=== PATIENT | female | born 1950 | race African-American/Black ===

== ENCOUNTER 2020-06-09 19:56 | Emergency (ER) | payer MEDICARE, MEDICAID, SELFPAY ==
[2020-06-09 20:04] VITALS: BP 180/94; PULSE 95; RESP 14; TEMP 36.9; O2SAT 100
--- NOTE | 2020-06-09 21:19 | ED.GENADULT ---
HPI - General Adult General Chief complaint: Unspecified Stated complaint: all over pain Time Seen by Provider: 06/09/20 21:11 Source: patient and family Mode of arrival: ambulatory Limitations: no limitations History of Present Illness HPI narrative: 70-year-old lady who has been treated for bone cancer by Dr. Tamez and her understanding is she has been in remission for a number of months This is been done primarily at [facility] She has chronic bone pain which her PCP Dr. Ryan has chronically treated with 7.5 [place]'s She is out and to her pain is flared She cannot get an office appointment until next Saturday She has no complaints of any other issues apart from this pain that she already knew she had Onset (ago): month(s) Severity: moderate Quality: aching Pain Consistency: constant Relieving factors: medication Exacerbating factors: other (Being out of meds) Associated symptoms: denies other symptoms Review of Systems Constitutional: Constitutional: Denies chills, Reports fatigue, Denies fever(s) and Reports weakness Cardiovascular: Cardiovascular: Denies chest pain Respiratory: Respiratory: Reports no additional respiratory complaints, Denies cough and Denies dyspnea Gastrointestinal: Gastrointestinal: Denies diarrhea and Denies vomiting Musculoskeletal: Musculoskeletal: Reports as per HPI, Reports back pain, Reports myalgias and Reports arthralgias Neurologic: Denies focal weakness and Denies numbness Exam Const: General: no acute distress Other: Frail, elderly, chronically ill-appearing Eyes: Conjunctivae: conjunctivae normal EOM: EOMs intact bilaterally Resp: Effort & Inspection: normal respiratory effort Auscultation: clear to auscultation bilaterally Cardio: Rhythm: regular rhythm GI: GI Palp: Yes Soft to palpation and No Tenderness to palpation present (GI) Skin: General skin exam: normal color Neuro: General: patient oriented x3 and moves all extremities Course Vital Signs Vital signs: Vital Signs Temperature 36.9 C 06/09/20 20:04 Pulse Rate 95 06/09/20 20:04 Respiratory Rate 14 06/09/20 20:04 Blood Pressure 180/94 H 06/09/20 20:04 Pulse Oximetry 100 06/09/20 20:04 Temperature 36.9 C 06/09/20 20:04 Pulse Rate 95 06/09/20 20:04 Respiratory Rate 14 06/09/20 20:04 Blood Pressure 180/94 H 06/09/20 20:04 Pulse Oximetry 100 06/09/20 20:04 Medical Decision Making Vital Signs Vital Signs: Vital Signs Temperature 36.9 C 06/09/20 20:04 Pulse Rate 95 06/09/20 20:04 Respiratory Rate 14 06/09/20 20:04 Blood Pressure 180/94 H 06/09/20 20:04 Pulse Oximetry 100 06/09/20 20:04 Temperature 36.9 C 06/09/20 20:04 Pulse Rate 95 06/09/20 20:04 Respiratory Rate 14 06/09/20 20:04 Blood Pressure 180/94 H 06/09/20 20:04 Pulse Oximetry 100 06/09/20 20:04 Discharge Plan Discharge Clinical Impression: Bone pain Patient Disposition: Home, Self-Care Condition: Stable Instructions: Pain Management in Older Adults (DC), Medication Safety for Older Adults (ED) Prescriptions: New hydrocodone-acetaminophen [[place]] 7.5-325 mg tablet 1 tablet PO Q6H PRN (Reason: pain) Qty: 15 RF: 0 Follow-up/Referrals: UNKNOWN,DOCTOR [Primary Care Provider] -
[2020-06-09 21:33] VITALS: BP 132/70; PULSE 88; RESP 18; O2SAT 100
[2020-06-09 21:34] VITALS: BP 139/77; PULSE 82; RESP 18; O2SAT 99
== END 2020-06-09 21:35 | disposition home or self-care (01) ==
PROVIDERS: Emergency Provider Emergency Medicine; PCP Internal Medicine
DX: M89.8X9 Other specified disorders of bone, unspecified site (principal); C41.9 Malignant neoplasm of bone and articular cartilage, unspecified
CPT/HCPCS: 99283